=== PATIENT | male | born 1960 | race Caucasian/White ===

== ENCOUNTER 2021-02-28 10:35 | Outpatient (CLI) | payer MEDICARE, OTHER, SELFPAY ==
--- NOTE | ~2021-02-28 | PE_ITS ---
EXAMINATION: PET skull to mid thigh DATE: 02/28/2021 12:51 INDICATION: Lung nodule TECHNIQUE: Blood glucose level was 92 mg/dL. 8.413 mCi of 18-fluorodeoxyglucose (18-FDG) was administ ered i.v. Low dose computed tomography (CT) images were acquired from the base of the brain to the pr oximal thighs for attenuation correction and anatomic localization. Positron emission tomography (PET ) images were acquired in the same distribution beginning 52 minutes after injection. Images includin g fused PET/CT images were reconstructed in axial, coronal, and sagittal planes. Automated exposure c ontrol technique was employed. The dose-length product was 449.46mGy-cm. COMPARISON: None FINDINGS: Head/neck: There is symmetric increased activity in the oral cavity, nares, lingual tonsils, parotid glands, jeffers bmandibular glands, laryngeal muscles and ocular muscles without CT correlate, likely physiologic. No pathologically enlarged cervical lymphadenopathy or suspicious foci of increased FDG uptake in the v isualized head or neck. Chest: Mild emphysema. 5 mm right lower lobe nodule without evident FDG activity. No other suspicious pulmon lis nodules, pneumonia, pulmonary edema or pleural effusion. Heart size is normal. No pericardial eff usion. 4.2 cm diameter fusiform ascending thoracic aortic aneurysm. No pathologically enlarged or FDG avid thoracic lymphadenopathy. Small sliding-type hiatal hernia. Abdomen/pelvis/proximal thighs: Physiologic renal accumulation and excretion of FDG activity in the kidneys, bladder and along portio ns of ureters. Normal degree and heterogenous pattern of increased uptake throughout the liver withou t radiologic correlate or dominant FDG avid lesion. The gallbladder, pancreas, spleen and bilateral a drenal glands are normal. Mild uptake scattered throughout the bowels without radiologic correlate, a lso likely physiologic. No other abnormal foci of increased FDG uptake or pathologically enlarged lym phadenopathy in the abdomen, pelvis or proximal thighs. Musculoskeletal: No suspicious lytic, blastic or FDG avid bone lesions. IMPRESSION: 1. 5 mm right lower lobe nodule without FDG uptake which is most likely benign. Could consider 12 mon follow-up low-dose noncontrast chest CT. 2. Mild emphysema. 3. 4.2 cm ascending thoracic aortic aneurysm. Reviewed, dictated and finalized at location A. IMPRESSION: 1. 5 mm right lower lobe nodule without FDG uptake which is most likely benign. Could consider 12 month follow-up low-dose noncontrast chest CT. 2. Mild emphysema. 3. 4.2 cm ascending thoracic aortic aneurysm.
[2021-02-28 11:36] LABS: Glucose Point of Care 92 (65-105)
== END 2021-02-28 10:36 | disposition home or self-care (01) ==
LOC: ANHIMG 10:48
PROVIDERS: PCP Nurse Practitioner Family; Visit Provider Nurse Practitioner Family
DX: R91.1 Solitary pulmonary nodule (principal); I71.4 Abdominal aortic aneurysm, without rupture; J43.9 Emphysema, unspecified
CPT/HCPCS: 78815; 82948; A9552